=== PATIENT | male | born 1960 | race Caucasian/White ===

== ENCOUNTER 2019-03-24 20:04 | Inpatient (IN) | payer MEDICAID ==
[~2019-03-24] VITALS: Ht 177.8 cm; Wt 88.2 kg
[~2019-03-24 20:04] MED LIST: LIDOcaine 1% W/epiNEPHrine 1:100,000 20ml vial ONE
[2019-03-24] MEDS ORDERED: TETanus/Pertussis (Acell)/Diphther VAC/PF (Tdap-Adult) 0.5ml syringe IMVAC ONE (21:50)
[2019-03-24] MEDS ORDERED: normal saline 1000ML IV soln IVB ONE (22:05)
[2019-03-24] MEDS: normal saline 1000ml 1,000 ML IV SCH (22:57)
[2019-03-24] MEDS ORDERED: ondansetron/PF 4mg/2ml inj IV PRN (23:00)
[2019-03-24] MEDS ORDERED: magnesium 4gm in 100ml NS 100 ML IV PRN (23:00)
[2019-03-24] MEDS ORDERED: morphine 2 MG/ML inj. syringe IV PRN (23:00)
[2019-03-24] MEDS ORDERED: magnesium hydroxide 30ml (MOM) UD suspension PO PRN (23:00)
[2019-03-24] MEDS ORDERED: mag hydrox/Alum hydrox/simeth 30ml oral suspension PO PRN (23:00)
[2019-03-24] MEDS ORDERED: potassium Cl 20 mEq SR tablet PO PRN ×2 (23:00)
[2019-03-24] MEDS ORDERED: potassium CL 10mEq/100ml bag 100 ML IV PRN ×2 (23:00)
[2019-03-24] MEDS ORDERED: magnesium Cl slow-release 64mg tablet PO PRN (23:00)
[2019-03-24] MEDS ORDERED: acetaminophen 325mg tablet PO PRN ×2 (23:00)
[2019-03-24] MEDS ORDERED: magnesium 2GM in 50ml NS 50 ML IV PRN (23:00)
[2019-03-24] MEDS ORDERED: VANCOMYCIN 1gm/H2O 200ml PB 200 ML IV ONE (23:30)
[2019-03-25] VITALS (16 sets, daily range): BP systolic 117–155; BP diastolic 63–92
--- NOTE | 2019-03-25 01:35 | NUR ---
PT PLAED ON HOSPITAL BED FOR COMFORT.
[2019-03-25 07:32] LABS: ALBUMIN 2.9 G/DL (3.4-5.0); ANION GAP 5 (8-16); BLOOD UREA NITROGEN 10 MG/DL (7-18); BUN/CREATININE RATIO 12.3 (5.4-32.0); CALCIUM 8.7 MG/DL (8.5-10.1); CHLORIDE 103 MMOL/L (99-107); CREATININE 0.81 MG/DL (0.60-1.10); GLUCOSE 137 MG/DL (70-104); MAGNESIUM 1.8 MG/DL (1.5-2.4); POTASSIUM 3.6 MMOL/L (3.5-5.1); SODIUM 135 MMOL/L (135-145); TOTAL CARBON DIOXIDE 27.4 MMOL/L (24-32); eGFR > 90 ML/MIN
[2019-03-25 08:50] LABS: BASOPHILS # (AUTO) 0.1 X10'3 (0-0.2); BASOPHILS % (AUTO) 0.5 % (0-1); EOSINOPHILS % (AUTO) 0.1 % (0-6); HEMATOCRIT 38.9 % (42.0-52.0); HEMOGLOBIN 13.3 g/dl (14.0-17.9); LYMPHOCYTES # (AUTO) 1.5 X10'3 (1.1-4.8); LYMPHOCYTES % (AUTO) 10.9 % (21-51); MEAN CORPUSCULAR HEMOGLOBIN 32.4 PG (27.0-31.0); MEAN CORPUSCULAR HGB CONC 34.2 g/dL (33.0-36.5); MEAN CORPUSCULAR VOLUME 94.8 FL (78-98); MEAN PLATELET VOLUME 7.4 FL (7.4-10.4); MONOCYTES # (AUTO) 1.2 X10'3 (0-0.9); MONOCYTES % (AUTO) 9.1 % (2-12); NEUTROPHILS # (AUTO) 10.8 X10'3 (1.8-7.7); NEUTROPHILS % (AUTO) 79.4 % (42-75); PLATELET COUNT 211 X10'3 (140-440); RED CELL DISTRIBUTION WIDTH 12.6 % (11.5-14.5); WHITE BLOOD COUNT 13.7 X10'3 (4.5-11.0)
--- NOTE | 2019-03-25 09:05 | NUR ---
RECEIVED REPORT FROM ER NURSE
[2019-03-25] MEDS: K and/or MAG REPLACEMENT MC SCH ×2 (09:49→20:00)
[2019-03-25] MEDS: HYDROcodone/acetaminophen 5mg/325mg tablet PO PRN ×3 (09:54→23:40)
[2019-03-25] MEDS: enoxaparin 40mg/0.4ml syringe SQ SCH (09:55)
[2019-03-25] MEDS: normal saline 1000ml 1,000 ML IV SCH ×2 (09:55→19:30)
[2019-03-25] MEDS: CefTRIAXone 2gm/D5W 50ml 50 ML IV SCH (09:59)
[2019-03-25] MEDS: VANCOmycin 1250MG/NS 250ml Bag 250 ML IV SCH ×2 (13:40→21:12)
[2019-03-25] MEDS ORDERED: sevoflurane 250ml liquid IH ONE (16:47)
[2019-03-25] MEDS ORDERED: midazolam 2 mg/2 ml injection ONE (16:54)
[2019-03-25] MEDS ORDERED: fentaNYL/PF 50MCG/1 ML 2ML syringe ONE ×2 (16:54→17:13)
--- NOTE | 2019-03-25 16:55 | NUR ---
pt is down at or
[2019-03-25] MEDS ORDERED: propofol inj 20 ML IV ONE (17:12)
--- NOTE | 2019-03-25 17:43 | NUR ---
PT ARRIVED IN PACU VIA BED FROM OR. LMA IN PLACE, ON ARRIVAL PT SAT UP AND PULLED TUBE OUT WITHOUT INCIDENT. C/O SEVERE PAIN, MEDICATED WITH fENTANYL BY DR PETERSEN. VS STABLE. RESP EASY. RUE ELEVATED.
[2019-03-25] MEDS ORDERED: ringers solution, lacted 1,000 ML IV SCH (17:46)
[2019-03-25] MEDS ORDERED: proCHLORperazine 10 MG/2 ml inj IV PRN (17:50)
[2019-03-25] MEDS ORDERED: morphine 4 MG/ML inj SYRINge IV PRN ×2 (17:50)
[2019-03-25] MEDS ORDERED: ondansetron/PF 4mg/2ml inj IV PRN (17:50)
[2019-03-25] MEDS ORDERED: meperidine/PF 25mg/ml syringe IV PRN ×2 (17:50)
--- NOTE | 2019-03-25 17:53 | NUR ---
VS 130/[id number] 98%
[2019-03-25] MEDS: meperidine/PF 25mg/ml syringe IV PRN ×3 (17:57→18:24)
[2019-03-25] MEDS ORDERED: meperidine/PF 25mg/ml syringe ONE (17:58)
--- NOTE | 2019-03-25 18:16 | NUR ---
SLEEPING IN INTERVALS, WHEN AWAKE ASKING FOR COFFEE AND CIGARETTE. GRIMACING IN PAIN, MEDICATED
--- NOTE | 2019-03-25 18:31 | NUR ---
gave report to ramírez gamez
--- NOTE | 2019-03-25 18:33 | NUR ---
RETURNED TO ROOM ON TELE #12. (TELE NOTIFIED) NURSE IN ROOM TO ACCEPT PT, REPORT GIVEN AT BEDSIDE
[2019-03-25] MEDS: lactobacillus rhamnosus 10,000 MMU CELLS/CAPSULE PO SCH (19:28)
[2019-03-25] MEDS: morphine 2 MG/ML inj. syringe IV PRN (21:38)
[2019-03-26 02:00] VITALS: BP 151/77
[2019-03-26] MEDS: morphine 2 MG/ML inj. syringe IV PRN (02:36)
[2019-03-26] MEDS: VANCOmycin 1250MG/NS 250ml Bag 250 ML IV SCH (04:38)
[2019-03-26] MEDS: HYDROcodone/acetaminophen 5mg/325mg tablet PO PRN ×4 (04:38→18:47)
[2019-03-26] MEDS: normal saline 1000ml 1,000 ML IV SCH ×2 (04:57→18:49)
--- NOTE | 2019-03-26 06:08 | NUR ---
Problems reprioritized. Patient report given, questions answered & plan of care reviewed with JESSENIA MILES.
[2019-03-26 06:22] LABS: BASOPHILS % (AUTO) 0.3 % (0-1); EOSINOPHILS # (AUTO) 0.1 X10'3 (0-0.9); EOSINOPHILS % (AUTO) 0.8 % (0-6); HEMATOCRIT 37.4 % (42.0-52.0); HEMOGLOBIN 12.8 g/dl (14.0-17.9); LYMPHOCYTES # (AUTO) 1.5 X10'3 (1.1-4.8); MEAN CORPUSCULAR HEMOGLOBIN 32.4 PG (27.0-31.0); MEAN CORPUSCULAR HGB CONC 34.2 g/dL (33.0-36.5); MEAN CORPUSCULAR VOLUME 94.9 FL (78-98); MEAN PLATELET VOLUME 7.5 FL (7.4-10.4); MONOCYTES # (AUTO) 0.9 X10'3 (0-0.9); MONOCYTES % (AUTO) 7.6 % (2-12); NEUTROPHILS # (AUTO) 9.8 X10'3 (1.8-7.7); NEUTROPHILS % (AUTO) 79.3 % (42-75); PLATELET COUNT 192 X10'3 (140-440); RED BLOOD COUNT 3.94 X10'6 (4.70-6.10); RED CELL DISTRIBUTION WIDTH 12.6 % (11.5-14.5); WHITE BLOOD COUNT 12.4 X10'3 (4.5-11.0)
[2019-03-26 06:37] LABS: ALBUMIN 2.6 G/DL (3.4-5.0); ANION GAP 6 (8-16); BLOOD UREA NITROGEN 13 MG/DL (7-18); BUN/CREATININE RATIO 14.9 (5.4-32.0); CALCIUM 8.4 MG/DL (8.5-10.1); CHLORIDE 102 MMOL/L (99-107); CREATININE 0.87 MG/DL (0.60-1.10); GLUCOSE 132 MG/DL (70-104); MAGNESIUM 1.8 MG/DL (1.5-2.4); SODIUM 135 MMOL/L (135-145); TOTAL CARBON DIOXIDE 26.8 MMOL/L (24-32); eGFR 90 ML/MIN
--- NOTE | 2019-03-26 06:46 | NUR ---
Patient in room ORTHO 4024. I have received report from JESSENIA Garay and had the opportunity to ask questions and assume patient care.
[2019-03-26 06:49] VITALS: BP 152/89
[2019-03-26] MEDS ORDERED: NO HOME MEDS (07:52)
[2019-03-26] MEDS: enoxaparin 40mg/0.4ml syringe SQ SCH (08:00)
[2019-03-26] MEDS: lactobacillus rhamnosus 10,000 MMU CELLS/CAPSULE PO SCH ×2 (08:15→20:00)
[2019-03-26] MEDS: CefTRIAXone 2gm/D5W 50ml 50 ML IV SCH (08:15)
[2019-03-26] MEDS: K and/or MAG REPLACEMENT MC SCH ×2 (08:16→18:50)
[2019-03-26 11:00] VITALS: BP 113/55
[2019-03-26] MEDS ORDERED: VANCOMYCIN LEVEL IV ONE (12:30)
[2019-03-26 22:00] VITALS: BP 126/69
[2019-03-27] MEDS: normal saline 1000ml 1,000 ML IV SCH ×3 (00:57→20:32)
[2019-03-27] MEDS: HYDROcodone/acetaminophen 5mg/325mg tablet PO PRN ×5 (02:56→20:24)
[2019-03-27 05:54] LABS: BASOPHILS # (AUTO) 0.1 X10'3 (0-0.2); BASOPHILS % (AUTO) 0.5 % (0-1); EOSINOPHILS # (AUTO) 0.1 X10'3 (0-0.9); EOSINOPHILS % (AUTO) 1.3 % (0-6); HEMATOCRIT 37.6 % (42.0-52.0); HEMOGLOBIN 13.1 g/dl (14.0-17.9); LYMPHOCYTES # (AUTO) 1.6 X10'3 (1.1-4.8); MEAN CORPUSCULAR HEMOGLOBIN 33.2 PG (27.0-31.0); MEAN PLATELET VOLUME 7.7 FL (7.4-10.4); MONOCYTES # (AUTO) 0.6 X10'3 (0-0.9); MONOCYTES % (AUTO) 5.3 % (2-12); NEUTROPHILS % (AUTO) 78.9 % (42-75); PLATELET COUNT 217 X10'3 (140-440); RED BLOOD COUNT 3.96 X10'6 (4.70-6.10); RED CELL DISTRIBUTION WIDTH 12.6 % (11.5-14.5); WHITE BLOOD COUNT 11.3 X10'3 (4.5-11.0)
--- NOTE | 2019-03-27 06:15 | NUR ---
Patient in room ORTHO 4024. I have received report from JESSENIA Stringer and had the opportunity to ask questions and assume patient care.
[2019-03-27 06:16] LABS: ALBUMIN 2.6 G/DL (3.4-5.0); ANION GAP 8 (8-16); BLOOD UREA NITROGEN 13 MG/DL (7-18); BUN/CREATININE RATIO 16.9 (5.4-32.0); CALCIUM 8.6 MG/DL (8.5-10.1); CHLORIDE 107 MMOL/L (99-107); CREATININE 0.77 MG/DL (0.60-1.10); GLUCOSE 143 MG/DL (70-104); POTASSIUM 3.9 MMOL/L (3.5-5.1); SODIUM 141 MMOL/L (135-145); TOTAL CARBON DIOXIDE 25.7 MMOL/L (24-32); eGFR > 90 ML/MIN
--- NOTE | 2019-03-27 06:23 | NUR ---
REPORT GIVEN TO JESSENIA GONZALEZ.
[2019-03-27 06:53] VITALS: BP 112/56
[2019-03-27] MEDS: CefTRIAXone 2gm/D5W 50ml 50 ML IV SCH (07:40)
[2019-03-27] MEDS: lactobacillus rhamnosus 10,000 MMU CELLS/CAPSULE PO SCH ×2 (07:40→20:24)
[2019-03-27] MEDS: enoxaparin 40mg/0.4ml syringe SQ SCH (07:40)
[2019-03-27] MEDS: K and/or MAG REPLACEMENT MC SCH ×2 (07:41→20:00)
[2019-03-27 10:00] VITALS: BP 126/81
--- NOTE | 2019-03-27 12:35 | NUR ---
PAGE to CM: Patient Zacarias Perla Rm# [id number]. Maro would like to DC patient tomorrow. Patient does not have transportation to [place] as of right now. Please contact me to discuss. JESSENIA John #[id number]
[2019-03-27] MEDS ORDERED: VANCOMYCIN LEVEL IV ONE ×2 (13:30→21:30)
--- NOTE | 2019-03-27 14:02 | NUR ---
Transportation plan for discharge. Plan per Dr. Holbrook is to D/C home tomorrow. In order to set up transportation and for the patient to receive his medications; nursing will have to call [facility] Transportation Benefits Hotline at when the patient is discharged and ready to go. He will need to be set up for the ride to stop at a local pharmacy, in [place], then to go home in [place].
--- NOTE | 2019-03-27 15:04 | NUR ---
Disregard last note regarding [employer]. Patient's friend Ashu will provide the transportation needed for discharge. Ashu's number is . Please call when discharge has been ordered.
[2019-03-27 18:00] VITALS: BP 123/79
--- NOTE | 2019-03-27 18:15 | NUR ---
Problems reprioritized. Patient report given, questions answered & plan of care reviewed with JESSENIA Garzon.
[2019-03-27 22:00] VITALS: BP 123/79
[2019-03-28] MEDS: HYDROcodone/acetaminophen 5mg/325mg tablet PO PRN ×3 (00:27→11:25)
[2019-03-28] MEDS: normal saline 1000ml 1,000 ML IV SCH (05:10)
[2019-03-28 05:53] LABS: BASOPHILS # (AUTO) 0.1 X10'3 (0-0.2); BASOPHILS % (AUTO) 0.6 % (0-1); EOSINOPHILS # (AUTO) 0.3 X10'3 (0-0.9); EOSINOPHILS % (AUTO) 2.8 % (0-6); HEMATOCRIT 38.2 % (42.0-52.0); HEMOGLOBIN 13.5 g/dl (14.0-17.9); LYMPHOCYTES # (AUTO) 1.8 X10'3 (1.1-4.8); LYMPHOCYTES % (AUTO) 18.9 % (21-51); MEAN CORPUSCULAR HEMOGLOBIN 33.4 PG (27.0-31.0); MEAN CORPUSCULAR HGB CONC 35.3 g/dL (33.0-36.5); MEAN CORPUSCULAR VOLUME 94.6 FL (78-98); MEAN PLATELET VOLUME 7.6 FL (7.4-10.4); MONOCYTES # (AUTO) 0.6 X10'3 (0-0.9); NEUTROPHILS # (AUTO) 6.7 X10'3 (1.8-7.7); NEUTROPHILS % (AUTO) 71.7 % (42-75); PLATELET COUNT 235 X10'3 (140-440); RED BLOOD COUNT 4.04 X10'6 (4.70-6.10); RED CELL DISTRIBUTION WIDTH 12.5 % (11.5-14.5); WHITE BLOOD COUNT 9.4 X10'3 (4.5-11.0)
--- NOTE | 2019-03-28 06:07 | NUR ---
Problems reprioritized. Patient report given, questions answered & plan of care reviewed with JESSENIA Ruffin.
[2019-03-28 06:17] LABS: ALBUMIN 2.6 G/DL (3.4-5.0); ANION GAP 8 (8-16); BLOOD UREA NITROGEN 18 MG/DL (7-18); BUN/CREATININE RATIO 18.9 (5.4-32.0); CALCIUM 8.9 MG/DL (8.5-10.1); CHLORIDE 108 MMOL/L (99-107); CREATININE 0.95 MG/DL (0.60-1.10); GLUCOSE 125 MG/DL (70-104); POTASSIUM 4.7 MMOL/L (3.5-5.1); SODIUM 142 MMOL/L (135-145); TOTAL CARBON DIOXIDE 26.4 MMOL/L (24-32); eGFR 81 ML/MIN
--- NOTE | 2019-03-28 06:18 | NUR ---
Received report from Ryann RUELAS
[2019-03-28 06:46] VITALS: BP 122/64
[2019-03-28] MEDS: CefTRIAXone 2gm/D5W 50ml 50 ML IV SCH (07:35)
[2019-03-28] MEDS: lactobacillus rhamnosus 10,000 MMU CELLS/CAPSULE PO SCH (07:35)
[2019-03-28] MEDS: enoxaparin 40mg/0.4ml syringe SQ SCH (07:36)
[2019-03-28] MEDS: K and/or MAG REPLACEMENT MC SCH (08:00)
[2019-03-28] MEDS ORDERED: LEVO500T2 PO (08:49)
[2019-03-28] MEDS ORDERED: HYDR-4353 PO (08:49)
--- NOTE | 2019-03-28 11:56 | NUR ---
Patient was discharged iv and tele was removed from patient. Discharge instructions were given to patient. Prescriptions were also given to patient. Patient did not want to wait for ride so he left after sighing and will wait out front
== END 2019-03-28 11:42 | disposition home or self-care (01) | DRG 710 ==
LOC: ER 20:10 → ED HOLD 22:57 → ORTHO 4S 03-25 09:24
PROVIDERS: ADMIT Hospitalist; ATTEND Family Medicine
PROC: 3E0234Z Introduction of Serum, Toxoid and Vaccine into Muscle, Percutaneous Approach (ICD-10-PCS; principal; 2019-03-24)
PROC: 0H9FXZZ Drainage of Right Hand Skin, External Approach (ICD-10-PCS; 2019-03-24)
PROC: 0L970ZZ Drainage of Right Hand Tendon, Open Approach (ICD-10-PCS; 2019-03-25)
DX: A41.9 Sepsis, unspecified organism (principal); B19.20 Unspecified viral hepatitis C without hepatic coma; M65.841 Other synovitis and tenosynovitis, right hand; D64.9 Anemia, unspecified; L03.011 Cellulitis of right finger; L02.511 Cutaneous abscess of right hand; F15.10 Other stimulant abuse, uncomplicated; R73.9 Hyperglycemia, unspecified; Z23 Encounter for immunization
CPT/HCPCS: 10060; 36415; 80048; 80202; 83735; 85025; 87070; 87075; 87077; 87081; 87186; 90471; 90715; 93005; 99285; A4618; A6222; A6446; A6449; A7000; G0378; J0696; J1650; J2175; J2250; J2270; J2704; J3010; J3370; J7030; J7120